=== PATIENT | female | born 1975 | race Hispanic/Latino ===

== ENCOUNTER 2017-05-24 23:05 | Emergency (ER) | payer SELFPAY ==
[~2017-05-24] VITALS: Ht 154.9 cm; Wt 87.4 kg
[~2017-05-24 23:05] MED LIST: AZO-CRANBERY450 MG OR; MACROBID100 MG OR; NO HOME MEDS; ONDANSETRON4 MG PO; PRENATA4 OR
[2017-05-25 00:34] LABS: HEMATOCRIT 40.9 % (37.0-47.0); HEMOGLOBIN 13.9 g/dl (12.0-16.0); IMMATURE GRANULOCYTES 0.4 % (0.0-1.0); MEAN CELL VOLUME 88.7 fL CALC (80.0-100.0); MEAN CORPUSCULAR HGB 30.2 pG CALC (26.0-32.0); NEUT# 8.5 thou/uL (2.00-7.15); RED BLOOD COUNT 4.61 mill/uL (4.20-5.60); RED CELL DISTRI WIDTH 14.2 % (11.5-15.5)
[2017-05-25 00:35] LABS: URINE BILIRUBIN - DIPSTICK NEGATIVE (NEGATIVE); URINE BLOOD DIPSTICK NEGATIVE (NEGATIVE); URINE COLOR YELLOW; URINE GLUCOSE - DIPSTICK NEGATIVE (NEGATIVE); URINE KETONE NEGATIVE (NEGATIVE); URINE LEUK ESTERASE NEGATIVE (NEGATIVE); URINE NITRITE - DIPSTICK NEGATIVE (Negative); URINE PROTEIN - DIPSTICK NEGATIVE (NEG-TRACE); URINE UROBILINOGEN - DIPSTICK 0.2 E.U./dL (0.2)
[2017-05-25 00:36] LABS: URINE CLARITY CLEAR
[2017-05-25 00:47] LABS: AMYLASE 67 u/l (30-110); LIPASE 57 u/l (23-300)
[2017-05-25 01:31] LABS: BETA-HCG, QUANT(RESULT NUMBER) 44233 mIU/mL
[2017-05-25 04:08] VITALS: BP 116/71
== END 2017-05-25 04:06 | disposition home or self-care (01) | DRG 781 ==
LOC: ED 23:05
PROVIDERS: Emergency Medicine
DX: O26.891 Other specified pregnancy related conditions, first trimester (principal); R50.9 Fever, unspecified; R10.2 Pelvic and perineal pain; Z3A.12 12 weeks gestation of pregnancy

== ENCOUNTER 2017-11-21 12:58 | Emergency (ER) | payer SELFPAY ==
[2017-11-21 13:00] VITALS: BP 134/83
== END 2017-11-21 13:45 | DRG 782 ==
LOC: ED 12:58
DX: O42.92 Full-term premature rupture of membranes, unspecified as to length of time between rupture and onset of labor (principal); Z3A.38 38 weeks gestation of pregnancy

== ENCOUNTER 2018-11-03 09:58 | Emergency (ER) | payer SELFPAY ==
[~2018-11-03] VITALS: Ht 154.9 cm; Wt 88.0 kg
[2018-11-03 11:44] LABS: HEMATOCRIT 45.5 % (37.0-47.0); HEMOGLOBIN 15.1 g/dl (12.0-16.0); IMMATURE GRANULOCYTES 0.3 % (0.0-5.0); MEAN CELL VOLUME 89.7 fL CALC (80.0-100.0); MEAN CORPUSCULAR HGB 29.8 pG CALC (26.0-32.0); MEAN CORPUSCULAR HGB CONC 33.2 g/L CALC (32.0-36.0); NEUT# 8.1 thou/uL (2.00-7.15); RED BLOOD COUNT 5.07 mill/uL (4.20-5.60); RED CELL DISTRI WIDTH 13.6 % (11.5-15.5); URINE BLOOD DIPSTICK NEGATIVE (NEGATIVE); URINE COLOR YELLOW; URINE GLUCOSE - DIPSTICK NEGATIVE (NEGATIVE); URINE KETONE TRACE mg/dL (NEGATIVE); URINE LEUK ESTERASE NEGATIVE (NEGATIVE); URINE NITRITE - DIPSTICK NEGATIVE (Negative); URINE PROTEIN - DIPSTICK 100 mg/dL (NEG-TRACE); URINE SPECIFIC GRAVITY >=1.030; URINE UROBILINOGEN - DIPSTICK 0.2 E.U./dL (0.2)
[2018-11-03 11:50] LABS: URINE BILIRUBIN - DIPSTICK SMALL (NEGATIVE); URINE WBC 0-2 WBC/hpf (0-5)
[2018-11-03 12:07] LABS: BILIRUBIN, TOTAL 0.6 mg/dL (0.0-1.4); BUN 12 mg/dL (7-17); BUN/CREATININE RATIO 20 (12-20 (CALC)); CHLORIDE 104 mmol/l (95-108); CREATININE 0.6 mg/dL (0.5-1.0); GFR > 60 ML/MIN (>=60 (CALC)); GFR FOR AFR.AMER. > 60 ML/MIN (>=60 (CALC)); LIPASE 114 u/l (23-300); POTASSIUM 4.6 mmol/l (3.5-5.1); SODIUM 139 mmol/l (137-146)
[2018-11-03 12:11] LABS: ALKALINE PHOSPHATASE 138 u/l (38-126); ANION GAP 19 (6-22 (CALC)); CARBON DIOXIDE 21 mmol/l (22-30); SGOT/AST 37 u/l (14-36); TOTAL PROTEIN 8.3 g/dL (6.3-8.2)
[2018-11-03 12:47] VITALS: BP 137/70
== END 2018-11-03 13:05 | disposition home or self-care (01) | DRG 392 ==
LOC: ED 09:58
PROVIDERS: Family Medicine
DX: K52.9 Noninfective gastroenteritis and colitis, unspecified (principal)

== ENCOUNTER 2020-11-13 07:08 | Emergency (ER) | payer SELFPAY ==
[~2020-11-13] VITALS: Ht 154.9 cm; Wt 90.0 kg
[2020-11-13 07:45] LABS: URINE BILIRUBIN - DIPSTICK NEGATIVE (NEGATIVE); URINE BLOOD DIPSTICK MODERATE (NEGATIVE); URINE COLOR YELLOW; URINE GLUCOSE - DIPSTICK NEGATIVE (NEGATIVE); URINE KETONE TRACE mg/dL (NEGATIVE); URINE LEUK ESTERASE MODERATE (NEGATIVE); URINE NITRITE - DIPSTICK POSITIVE (Negative); URINE PROTEIN - DIPSTICK 30 mg/dL (NEG-TRACE); URINE SPECIFIC GRAVITY 1.025; URINE UROBILINOGEN - DIPSTICK 0.2 E.U./dL (0.2)
[2020-11-13 07:54] LABS: URINE BACTERIA MODERATE hpf; URINE SQUAMOUS EPITHELIAL CELL FEW EPI/hpf (0-FEW); URINE WBC 20-50 WBC/hpf (0-5)
[2020-11-13] MEDS ORDERED: PYRIDIUM200 MG PO (08:21)
[2020-11-13] MEDS ORDERED: MACROBID100 M1 PO (08:21)
[2020-11-13 08:54] VITALS: BP 115/68
== END 2020-11-13 08:55 | disposition home or self-care (01) | DRG 690 ==
LOC: ED 07:08
PROVIDERS: Emergency Medicine
DX: N39.0 Urinary tract infection, site not specified (principal); B96.20 Unspecified Escherichia coli [E. coli] as the cause of diseases classified elsewhere

== ENCOUNTER 2021-01-07 07:47 | Emergency (ER) | payer SELFPAY ==
[~2021-01-07] VITALS: Ht 157.5 cm; Wt 85.0 kg
[~2021-01-07 07:47] MED LIST changes: +MACROBID100 M1 PO; +PYRIDIUM200 MG PO
[2021-01-07 09:17] LABS: HEMATOCRIT 40.6 % (37.0-47.0); HEMOGLOBIN 13.4 g/dl (12.0-16.0); IMMATURE GRANULOCYTES 0.5 % (0.0-5.0); MEAN CELL VOLUME 90.8 fL CALC (80.0-100.0); NEUT# 5.61 thou/uL (2.00-7.15); RED BLOOD COUNT 4.47 mill/uL (4.20-5.60); RED CELL DISTRI WIDTH 16.3 % (11.5-15.5)
[2021-01-07 09:20] LABS: URINE BILIRUBIN - DIPSTICK NEGATIVE (NEGATIVE); URINE BLOOD DIPSTICK NEGATIVE (NEGATIVE); URINE COLOR YELLOW; URINE GLUCOSE - DIPSTICK NEGATIVE (NEGATIVE); URINE KETONE NEGATIVE (NEGATIVE); URINE LEUK ESTERASE NEGATIVE (NEGATIVE); URINE PH 6.5 (4.5-8.0); URINE PROTEIN - DIPSTICK NEGATIVE (NEG-TRACE); URINE SPECIFIC GRAVITY >=1.030; URINE UROBILINOGEN - DIPSTICK 0.2 E.U./dL (0.2)
[2021-01-07 09:21] LABS: URINE NITRITE - DIPSTICK NEGATIVE (Negative)
[2021-01-07 09:22] LABS: HCG SERUM/URINE (NEG/POS) NEGATIVE (NEGATIVE)
[2021-01-07 09:34] LABS: ALBUMIN 4.1 g/dL (3.2-5.0); ALKALINE PHOSPHATASE 76 u/l (38-126); ANION GAP 14 (6-22 (CALC)); BILIRUBIN, TOTAL 0.6 mg/dL (0.0-1.4); BUN 12 mg/dL (7-17); BUN/CREATININE RATIO 23 (12-20 (CALC)); CARBON DIOXIDE 23 mmol/l (22-30); CHLORIDE 103 mmol/l (95-108); CREATININE 0.5 mg/dL (0.5-1.0); GFR > 60 ML/MIN (>=60 (CALC)); GFR FOR AFR.AMER. > 60 ML/MIN (>=60 (CALC)); POTASSIUM 3.6 mmol/l (3.5-5.1); SGOT/AST 23 u/l (14-36); SODIUM 136 mmol/l (137-146); TOTAL PROTEIN 7.5 g/dL (6.3-8.2)
[2021-01-07] MEDS ORDERED: DOXYCYC MONO100 M2 PO (09:42)
[2021-01-07] MEDS ORDERED: COMBIVIR 1501 COMBO PO (09:48)
[2021-01-07] MEDS ORDERED: CRIXIVAN400 MG PO (09:48)
[2021-01-07 12:20] VITALS: BP 135/70
== END 2021-01-07 12:20 | disposition home or self-care (01) | DRG 923 ==
LOC: ED 07:47
PROVIDERS: Family Medicine
DX: T74.21XA Adult sexual abuse, confirmed, initial encounter (principal); S30.817A Abrasion of anus, initial encounter; Y07.01 Husband, perpetrator of maltreatment and neglect; Y92.003 Bedroom of unspecified non-institutional (private) residence as the place of occurrence of the external cause; Z20.6 Contact with and (suspected) exposure to human immunodeficiency virus [HIV]; Z20.2 Contact with and (suspected) exposure to infections with a predominantly sexual mode of transmission

== ENCOUNTER 2021-04-30 11:10 | Emergency (ER) | payer SELFPAY ==
[~2021-04-30] VITALS: Ht 157.5 cm; Wt 91.2 kg
[~2021-04-30 11:10] MED LIST changes: +COMBIVIR 1501 COMBO PO; +CRIXIVAN400 MG PO; +DOXYCYC MONO100 M2 PO
[2021-04-30 13:04] LABS: URINE BILIRUBIN - DIPSTICK NEGATIVE (NEGATIVE); URINE COLOR YELLOW; URINE GLUCOSE - DIPSTICK NEGATIVE (NEGATIVE); URINE KETONE NEGATIVE (NEGATIVE); URINE PH 6.5 (4.5-8.0); URINE PROTEIN - DIPSTICK NEGATIVE (NEG-TRACE); URINE SPECIFIC GRAVITY 1.025; URINE UROBILINOGEN - DIPSTICK 0.2 E.U./dL (0.2)
[2021-04-30 13:05] LABS: URINE BLOOD DIPSTICK LARGE (NEGATIVE); URINE LEUK ESTERASE NEGATIVE (NEGATIVE); URINE NITRITE - DIPSTICK NEGATIVE (Negative); URINE SQUAMOUS EPITHELIAL CELL FEW EPI/hpf (0-FEW)
[2021-04-30] MEDS ORDERED: FIORICET PO (14:01)
[2021-04-30] MEDS ORDERED: ONDANSETRON4 MG PO (14:01)
[2021-04-30 14:40] VITALS: BP 147/98
== END 2021-04-30 14:40 | disposition home or self-care (01) | DRG 103 ==
LOC: ED 11:10
PROVIDERS: Emergency Medicine
DX: G43.909 Migraine, unspecified, not intractable, without status migrainosus (principal); Z20.822 Contact with and (suspected) exposure to COVID-19

== ENCOUNTER 2024-04-18 16:42 | Emergency (ER) | payer OTHER ==
[2024-04-18] VITALS (7 sets, daily range): BP systolic 121–144; BP diastolic 74–97
[~2024-04-18] VITALS: Ht 157.5 cm; Wt 72.5 kg
[~2024-04-18 16:42] MED LIST changes: +FIORICET PO
[2024-04-18] MEDS ORDERED: DiphenhydrAMINE HCL 50 MG/ML SDV IV ONE (16:55)
[2024-04-18] MEDS ORDERED: KETOROLAC TROMETHAMINE 15 MG/ML SDV IV ONE (16:55)
[2024-04-18] MEDS ORDERED: METOCLOPRAMIDE HCL 10 MG/2 ML SDV IV ONE (16:55)
[2024-04-18] MEDS ORDERED: SODIUM CHLORIDE 0.9% 1,000 ML IV ONE (16:55)
[2024-04-18 17:04] LABS: BASO% 0.1 % (0-3); EOS% 0.2 % (0-8); HEMATOCRIT 43.5 % (37.0-47.0); HEMOGLOBIN 14.1 g/dl (12.0-16.0); IMMATURE GRANULOCYTES 0.2 % (0.0-5.0); LYMPH% 18.2 % (15-41); MEAN CELL VOLUME 95.6 fL CALC (80.0-100.0); MEAN CORPUSCULAR HGB CONC 32.4 g/dL CAL (32.0-36.0); MONO% 4.1 % (2-13); NEUT# 6.58 thou/uL (2.00-7.15); NEUT% 77.2 % (42-76); RED BLOOD COUNT 4.55 mill/uL (4.20-5.60)
[2024-04-18 17:15] LABS: ALBUMIN 4.3 g/dL (3.2-5.0); TOTAL PROTEIN 7.4 g/dL (6.3-8.2)
[2024-04-18 17:20] LABS: CREATININE 0.6 mg/dL (0.5-1.0)
[2024-04-18 17:24] LABS: BILIRUBIN, TOTAL 0.7 mg/dL (0.02-1.3)
[2024-04-18] MEDS ORDERED: FIORICET PO (17:44)
[2024-04-18] MEDS ORDERED: ZOFRAN4 MG/TAB PO (17:44)
== END 2024-04-18 18:02 | disposition home or self-care (01) | DRG 103 ==
LOC: ED 16:42
PROVIDERS: Nurse Practitioner Family
DX: G43.909 Migraine, unspecified, not intractable, without status migrainosus (principal); Z20.822 Contact with and (suspected) exposure to COVID-19
CPT/HCPCS: J1200; J1885; J2765

== ENCOUNTER 2024-07-20 14:15 | Emergency (ER) | payer OTHER ==
[~2024-07-20] VITALS: Ht 157.5 cm; Wt 92.5 kg
[~2024-07-20 14:15] MED LIST changes: +ZOFRAN4 MG/TAB PO
[2024-07-20 14:23] VITALS: BP 149/79
[2024-07-20 14:30] VITALS: BP 140/74
[2024-07-20 14:47] LABS: URINE BILIRUBIN - DIPSTICK Negative (NEGATIVE); URINE BLOOD DIPSTICK Large (NEGATIVE); URINE CLARITY Slightly Cloudy; URINE GLUCOSE - DIPSTICK Negative (NEGATIVE); URINE KETONE Negative (NEGATIVE); URINE LEUK ESTERASE Negative (Negative); URINE NITRITE - DIPSTICK Negative (Negative); URINE PH 6.5 (4.5-8.0); URINE PROTEIN - DIPSTICK 30 mg/dL (NEG-TRACE); URINE SPECIFIC GRAVITY 1.025; URINE UROBILINOGEN - DIPSTICK 0.2 E.U./dL (0.2)
[2024-07-20 14:52] LABS: URINE COLOR Yellow
[2024-07-20 15:01] VITALS: BP 125/81
[2024-07-20 15:01] LABS: URINE RBC 50-100 RBC/hpf (0-5)
[2024-07-20 15:03] LABS: URINE BACTERIA RARE hpf; URINE SQUAMOUS EPITHELIAL CELL FEW EPI/hpf (0-FEW); URINE WBC 0-2 WBC/hpf (0-5)
[2024-07-20] MEDS ORDERED: KETOROLAC TROMETHAMINE 30 MG/ML SDV IM ONE (15:25)
[2024-07-20 15:31] VITALS: BP 125/71
[2024-07-20] MEDS ORDERED: KETOROLAC TROMETHAMINE 30 MG/ML SDV IV ONE (15:40)
[2024-07-20 15:43] LABS: BASO% 0.3 % (0-3); EOS% 1.6 % (0-8); HEMATOCRIT 37.8 % (37.0-47.0); HEMOGLOBIN 12.6 g/dl (12.0-16.0); IMMATURE GRANULOCYTES 0.1 % (0.0-5.0); LYMPH% 25.9 % (15-41); MEAN CELL VOLUME 93.1 fL CALC (80.0-100.0); MEAN CORPUSCULAR HGB CONC 33.3 g/dL CAL (32.0-36.0); MONO% 6.8 % (2-13); NEUT# 4.78 thou/uL (2.00-7.15); NEUT% 65.3 % (42-76); RED BLOOD COUNT 4.06 mill/uL (4.20-5.60); RED CELL DISTRI WIDTH 13.4 % (11.5-15.5)
[2024-07-20 15:56] LABS: ALBUMIN 3.9 g/dL (3.2-5.0); BILIRUBIN, TOTAL 0.7 mg/dL (0.02-1.3); CREATININE 0.5 mg/dL (0.5-1.0); POTASSIUM 3.6 mmol/l (3.5-5.1); TOTAL PROTEIN 6.8 g/dL (6.3-8.2)
[2024-07-20 16:01] VITALS: BP 117/72
[2024-07-20 16:31] VITALS: BP 112/72
[2024-07-20] MEDS ORDERED: MEDDOSEPAK PO (16:36)
[2024-07-20] MEDS ORDERED: NAPROXEN500 MG PO (16:36)
== END 2024-07-20 16:53 | disposition home or self-care (01) | DRG 556 ==
LOC: ED 14:15
PROVIDERS: Family Medicine; Nurse Practitioner
DX: M25.562 Pain in left knee (principal); M25.561 Pain in right knee; M25.522 Pain in left elbow